=== PATIENT | male | born 1965 | race Caucasian/White ===

== ENCOUNTER 2018-09-27 02:52 | Emergency (ER) | payer OTHER ==
[~2018-09-27] VITALS: Ht 185.4 cm; Wt 74.8 kg
[2018-09-27 03:36] LABS: HEMOGLOBIN 12.7 gm/dL (14.0-18.0); MCH 31.1 pg (26.0-34.0); MCHC 33.4 g/dL (28.0-37.0); RBC 4.09 mil/uL (4.50-6.00); RDW 16.1 % (10.5-14.5); WBC 4.1 thou/uL (4.0-11.0)
[2018-09-27 03:44] LABS: CALCIUM 7.8 mg/dL (8.5-10.1); CREATININE 0.8 mg/dL (0.7-1.3)
[2018-09-27 03:46] LABS: POTASSIUM 2.7 mmol/L (3.5-5.1)
[2018-09-27 03:47] LABS: AMP/METHAMP Negative (Negative); BARBITURATES Negative (Negative); BENZODIAZEPINES Negative (Negative); COCAINE Negative (Negative); METHADONE Negative (Negative); OPIATES Negative (Negative); PCP Negative (Negative)
[2018-09-27 12:31] VITALS: BP 121/62
== END 2018-09-27 12:31 | disposition home or self-care (01) ==
LOC: ER 02:52
PROVIDERS: Emergency Medicine
DX: S22.41XA Multiple fractures of ribs, right side, initial encounter for closed fracture (principal); F10.121 Alcohol abuse with intoxication delirium; Y90.8 Blood alcohol level of 240 mg/100 ml or more; R45.851 Suicidal ideations; V04.10XA Pedestrian on foot injured in collision with heavy transport vehicle or bus in traffic accident, initial encounter; Y93.89 Activity, other specified; Y92.89 Other specified places as the place of occurrence of the external cause; Y99.8 Other external cause status

== ENCOUNTER 2019-01-20 10:06 | Emergency (ER) | payer OTHER ==
[~2019-01-20] VITALS: Ht 185.4 cm; Wt 66.2 kg
[2019-01-20] MEDS ORDERED: NEURONTIN100 MG PO (10:24)
[2019-01-20] MEDS ORDERED: SERTRALINE HCL100 MG PO (10:24)
[2019-01-20] MEDS ORDERED: TRAZODONE 150150 M1 PO (10:24)
[2019-01-20 10:50] LABS: URINE BILIRUBIN NEGATIVE (Negative); URINE BLOOD NEGATIVE (Negative); URINE CLARITY CLEAR; URINE COLOR YELLOW; URINE GLUCOSE-RANDOM* NEGATIVE (Negative); URINE KETONES NEGATIVE (Negative); URINE LEUKOCYTES-REFLEX NEGATIVE (Negative); URINE NITRITE-REFLEX NEGATIVE (Negative); URINE PROTEIN (DIPSTICK) TRACE (Negative)
[2019-01-20 10:54] LABS: AMP/METHAMP Negative (Negative); BARBITURATES Negative (Negative); BENZODIAZEPINES Negative (Negative); COCAINE Negative (Negative); METHADONE Negative (Negative); OPIATES Negative (Negative); PCP Negative (Negative)
[2019-01-20 11:14] LABS: HEMATOCRIT 32.5 % (42.0-52.0); HEMOGLOBIN 10.8 gm/dL (14.0-18.0); MCH 31.2 pg (26.0-34.0); MCHC 33.1 g/dL (28.0-37.0); MCV 94.3 fL (80.0-100.0); RBC 3.45 mil/uL (4.50-6.00); RDW 16.4 % (10.5-14.5); WBC 3.3 thou/uL (4.0-11.0)
[2019-01-20 11:32] LABS: ALBUMIN 3.1 g/dL (3.4-5.0); ANION GAP 10 mmol/L (7-16); BUN 7 mg/dL (7-18); CALCIUM 7.7 mg/dL (8.5-10.1); CHLORIDE 107 mmol/L (98-107); CO2 29 mmol/L (21-32); CREATININE 0.6 mg/dL (0.7-1.3); GLUCOSE 121 mg/dL (74-106); SALICYLATE < 2.8 mg/dL (2.8-20.0); SGOT 85 U/L (15-37); SGPT 37 U/L (30-65); SODIUM 146 mmol/L (136-145); TOTAL BILIRUBIN 0.4 mg/dL (<0.1-1.0); TOTAL PROTEIN 7.2 g/dL (6.4-8.2); TROPONIN-I <0.06 ng/mL (<0.06)
[2019-01-20 11:37] LABS: POTASSIUM 2.9 mmol/L (3.5-5.1)
[2019-01-20 11:38] LABS: ABSOLUTE NEUTROPHILS 1.8 thou/uL (1.4-8.2)
[2019-01-20 11:39] LABS: PLATELET COUNT 73 thou/uL (150-400); PLATELET ESTIMATE DECREASED
[2019-01-20 12:17] LABS: MAGNESIUM 1.2 mg/dL (1.8-2.4); PHOSPHORUS 3.1 mg/dL (2.5-4.9)
[2019-01-20 21:30] VITALS: BP 115/72
--- NOTE | 2019-01-21 08:35 | EKG ---
[address] [address] ELECTROCARDIOGRAM REPORT Name: TOÑOSUKUMAR HEATHER [id number] Admission: 01/20/19 Attend Phys: Discharge: 01/20/19 Date of : 67 Report #: [id number] THIS REPORT FOR: //name// [facility] ED Test Date: 2019-01-20 Test Time: 10:47:06 Pat Name: SUKUMAR LUNDBERG Department: Room: Gender: Corporate Administrator: DERRELL : 1965 Requested By: Gerardo Manuel Order Number: [id number] MD: Dominic Conway Measurements Intervals Mcintosh Rate: 76 P: 51 TN: 188 QRS: 34 QRSD: 86 T: 49 QT: 420 QTc: 473 Interpretive Statements Sinus rhythm Normal tracing No previous ECG available for comparison Electronically Signed On 01-21-2019 8:34:47 CDT by Dominic Conway [email or web address] <ELECTRONICALLY SIGNED> By: Dominic Conway MD, [facility] 01/21/19 0834 1047 1047 Dominic Conway MD, FACC /EPI
== END 2019-01-20 22:45 | disposition home or self-care (01) ==
LOC: ER 10:06
PROVIDERS: Emergency Medicine
DX: F10.129 Alcohol abuse with intoxication, unspecified (principal); E87.6 Hypokalemia; E83.42 Hypomagnesemia; R45.851 Suicidal ideations; F17.210 Nicotine dependence, cigarettes, uncomplicated; Z91.030 Bee allergy status

== ENCOUNTER 2019-04-15 21:16 | Emergency (ER) | payer OTHER ==
[~2019-04-15] VITALS: Ht 185.4 cm; Wt 72.6 kg
[~2019-04-15 21:16] MED LIST: NEURONTIN100 MG PO; SERTRALINE HCL100 MG PO; TRAZODONE 150150 M1 PO
[2019-04-15 22:27] LABS: URINE BILIRUBIN NEGATIVE (Negative); URINE BLOOD NEGATIVE (Negative); URINE CLARITY CLEAR; URINE COLOR YELLOW; URINE GLUCOSE-RANDOM* NEGATIVE (Negative); URINE KETONES NEGATIVE (Negative); URINE LEUKOCYTES-REFLEX NEGATIVE (Negative); URINE NITRITE-REFLEX NEGATIVE (Negative); URINE PROTEIN (DIPSTICK) NEGATIVE (Negative); URINE SPECIFIC GRAVITY 1.015 (1.005-1.035); URINE UROBILINOGEN 0.2 E.U./dl (0.2-1.0)
[2019-04-15 22:35] LABS: AMP/METHAMP Negative (Negative); BARBITURATES Negative (Negative); BENZODIAZEPINES Negative (Negative); COCAINE Negative (Negative); METHADONE Negative (Negative); OPIATES Negative (Negative); PCP Negative (Negative)
[2019-04-15 22:35] LABS: CALCIUM 8.7 mg/dL (8.5-10.1); CREATININE 0.9 mg/dL (0.7-1.3); POTASSIUM 3.2 mmol/L (3.5-5.1); SALICYLATE 3.3 mg/dL (2.8-20.0)
[2019-04-15 22:36] LABS: HEMATOCRIT 38.4 % (42.0-52.0); HEMOGLOBIN 12.3 gm/dL (14.0-18.0); MCH 27.1 pg (26.0-34.0); MCHC 31.9 g/dL (28.0-37.0); RBC 4.51 mil/uL (4.50-6.00); RDW 18.3 % (10.5-14.5); WBC 5.8 thou/uL (4.0-11.0)
[2019-04-15 23:07] LABS: ALBUMIN 4.2 g/dL (3.4-5.0); DIRECT BILIRUBIN 0.2 mg/dL (<0.1-0.2); TOTAL BILIRUBIN 0.4 mg/dL (<0.1-1.0); TOTAL PROTEIN 9.5 g/dL (6.4-8.2)
[2019-04-16 04:20] VITALS: BP 86/52
== END 2019-04-16 10:35 | disposition home or self-care (01) ==
LOC: ER 21:16
PROVIDERS: Emergency Medicine
DX: F32.9 Major depressive disorder, single episode, unspecified (principal); F10.129 Alcohol abuse with intoxication, unspecified; Z91.030 Bee allergy status

== ENCOUNTER 2019-05-03 20:55 | Emergency (ER) | payer OTHER ==
[~2019-05-03] VITALS: Ht 185.4 cm; Wt 72.6 kg
[2019-05-03 22:25] LABS: URINE BLOOD TRACE (Negative); URINE CLARITY CLEAR; URINE COLOR YELLOW; URINE GLUCOSE-RANDOM* NEGATIVE (Negative); URINE KETONES TRACE (Negative); URINE LEUKOCYTES-REFLEX NEGATIVE (Negative); URINE NITRITE-REFLEX NEGATIVE (Negative); URINE PROTEIN (DIPSTICK) 2+ (Negative); URINE SPECIFIC GRAVITY 1.025 (1.005-1.035)
[2019-05-03 22:25] LABS: ABSOLUTE NEUTROPHILS 1.5 thou/uL (1.4-8.2); BASOPHILS 2.7 % (0.0-2.0); EOSINOPHILS 1.4 % (0.0-3.0); HEMATOCRIT 36.9 % (42.0-52.0); HEMOGLOBIN 11.7 gm/dL (14.0-18.0); MCH 27.1 pg (26.0-34.0); MCHC 31.8 g/dL (28.0-37.0); MCV 85.4 fL (80.0-100.0); MONOCYTES 11.3 % (1.0-8.0); POLYS 39.6 % (36.0-66.0); RBC 4.32 mil/uL (4.50-6.00); RDW 18.9 % (10.5-14.5); WBC 3.7 thou/uL (4.0-11.0)
[2019-05-03 22:26] LABS: ICTOTEST (BILI CONFIRMATORY) Negative (Negative); URINE BILIRUBIN NEGATIVE (Negative)
[2019-05-03 22:32] LABS: CALCIUM 7.8 mg/dL (8.5-10.1); CREATININE 0.6 mg/dL (0.7-1.3); POTASSIUM 3.3 mmol/L (3.5-5.1)
[2019-05-03 22:33] LABS: BACTERIA-REFLEX 1-9 Few /HPF (None Seen); CASTS None Seen /LPF (None Seen); CRYSTALS None Seen /LPF (None Seen); SQUAMOUS None Seen /LPF (0-3); URINE RBC 0-2 Rare /HPF (0-2); URINE WBC-REFLEX 0-5 Rare /HPF (0-5)
[2019-05-03 22:35] LABS: AMP/METHAMP Negative (Negative); BARBITURATES Negative (Negative); BENZODIAZEPINES Negative (Negative); COCAINE Negative (Negative); METHADONE Negative (Negative); OPIATES Negative (Negative); PCP Negative (Negative)
[2019-05-03 22:37] LABS: ALBUMIN 3.7 g/dL (3.4-5.0); TOTAL BILIRUBIN 0.5 mg/dL (<0.1-1.0); TOTAL PROTEIN 8.5 g/dL (6.4-8.2)
[2019-05-03 22:47] LABS: PLATELET COUNT 76 thou/uL (150-400)
[2019-05-04 08:31] VITALS: BP 135/90
== END 2019-05-04 08:31 | disposition home or self-care (01) ==
LOC: ER 20:55
PROVIDERS: Nurse Practitioner Family
DX: R45.851 Suicidal ideations (principal); F10.129 Alcohol abuse with intoxication, unspecified; F32.9 Major depressive disorder, single episode, unspecified; I10 Essential (primary) hypertension; Z91.030 Bee allergy status; Y90.8 Blood alcohol level of 240 mg/100 ml or more

== ENCOUNTER 2020-04-25 03:18 | Emergency (ER) | payer OTHER ==
[~2020-04-25] VITALS: Ht 185.4 cm; Wt 65.4 kg
[2020-04-25 04:03] LABS: CALCIUM 8.1 mg/dL (8.5-10.1); CREATININE 0.7 mg/dL (0.7-1.3)
[2020-04-25 04:05] LABS: POTASSIUM 2.9 mmol/L (3.5-5.1)
[2020-04-25 04:09] LABS: ABSOLUTE NEUTROPHILS 3.3 thou/uL (1.4-8.2); ALBUMIN 1.8 g/dL (3.4-5.0); BASOPHILS 0.9 % (0.0-2.0); EOSINOPHILS 3.1 % (0.0-3.0); HEMATOCRIT 27.6 % (42.0-52.0); LYMPHOCYTES 21.9 % (24.0-44.0); MCH 28.9 pg (26.0-34.0); MCHC 32.7 g/dL (28.0-37.0); MCV 88.6 fL (80.0-100.0); PLATELET COUNT 143 thou/uL (150-400); POLYS 61.1 % (36.0-66.0); RBC 3.12 mil/uL (4.50-6.00); RDW 18.1 % (10.5-14.5); TOTAL BILIRUBIN 1.1 mg/dL (0.2-1.0); TOTAL PROTEIN 7.3 g/dL (6.4-8.2); WBC 5.4 thou/uL (4.0-11.0)
[2020-04-25 04:58] LABS: URINE BILIRUBIN NEGATIVE (Negative); URINE BLOOD NEGATIVE (Negative); URINE CLARITY CLEAR; URINE COLOR YELLOW; URINE GLUCOSE-RANDOM* NEGATIVE (Negative); URINE KETONES NEGATIVE (Negative); URINE LEUKOCYTES-REFLEX NEGATIVE (Negative); URINE NITRITE-REFLEX NEGATIVE (Negative); URINE PROTEIN (DIPSTICK) NEGATIVE (Negative); URINE SPECIFIC GRAVITY 1.015 (1.005-1.035)
[2020-04-25 05:56] LABS: BF NUCLEATED CELLS 638 /mm3; BF RBC 1314 /mm3
[2020-04-25 06:00] LABS: CLARITY CLEAR; COLOR YELLOW; TOTAL VOLUME 70 mL
[2020-04-25 06:15] LABS: SOURCE PERITONEAL
[2020-04-25 06:19] VITALS: BP 100/70
[2020-04-25 06:23] LABS: BF MACROPHAGE 30 %; BF NEUTROPHILS 11 %
== END 2020-04-25 06:51 | disposition still patient (30) ==
LOC: ER 03:18
PROVIDERS: Emergency Medicine
DX: R10.32 Left lower quadrant pain (principal); R10.33 Periumbilical pain; E11.9 Type 2 diabetes mellitus without complications; I10 Essential (primary) hypertension; Z91.030 Bee allergy status; Z79.899 Other long term (current) drug therapy

== ENCOUNTER 2020-05-03 10:08 | Emergency (ER) | payer OTHER ==
[~2020-05-03] VITALS: Ht 185.4 cm; Wt 63.5 kg
[2020-05-03] MEDS ORDERED: MOBIC7.5 MG PO (12:50)
[2020-05-03 13:25] VITALS: BP 100/72
[2020-05-04] MEDS ORDERED: DOXYCYCLINE 10100 MG PO (17:13)
== END 2020-05-03 13:25 ==
LOC: ER 10:08
DX: R10.84 Generalized abdominal pain (principal); I10 Essential (primary) hypertension; E11.9 Type 2 diabetes mellitus without complications; F17.210 Nicotine dependence, cigarettes, uncomplicated; Z79.899 Other long term (current) drug therapy; Z91.030 Bee allergy status

== ENCOUNTER 2020-05-04 14:20 | Emergency (ER) | payer OTHER ==
[~2020-05-04] VITALS: Ht 185.4 cm; Wt 67.5 kg
[~2020-05-04 14:20] MED LIST changes: +MOBIC7.5 MG PO
[2020-05-04 14:41] LABS: HEMOGLOBIN 8.9 gm/dL (14.0-18.0); MCH 28.8 pg (26.0-34.0); MCHC 32.1 g/dL (28.0-37.0); WBC 5.4 thou/uL (4.0-11.0)
[2020-05-04 14:42] LABS: ABSOLUTE NEUTROPHILS 3.6 thou/uL (1.4-8.2); BASOPHILS 1.1 % (0.0-2.0); EOSINOPHILS 1.5 % (0.0-3.0); HEMATOCRIT 27.5 % (42.0-52.0); LYMPHOCYTES 17.5 % (24.0-44.0); MCV 89.6 fL (80.0-100.0); MONOCYTES 13.7 % (1.0-8.0); PLATELET COUNT 161 thou/uL (150-400); POLYS 66.2 % (36.0-66.0); RBC 3.07 mil/uL (4.50-6.00); RDW 19.6 % (10.5-14.5)
[2020-05-04 14:53] LABS: CALCIUM 8.3 mg/dL (8.5-10.1); CREATININE 0.8 mg/dL (0.7-1.3); POTASSIUM 3.6 mmol/L (3.5-5.1)
[2020-05-04 14:57] LABS: URINE BILIRUBIN NEGATIVE (Negative); URINE BLOOD NEGATIVE (Negative); URINE CLARITY CLEAR; URINE COLOR YELLOW; URINE GLUCOSE-RANDOM* NEGATIVE (Negative); URINE KETONES NEGATIVE (Negative); URINE LEUKOCYTES-REFLEX NEGATIVE (Negative); URINE NITRITE-REFLEX NEGATIVE (Negative); URINE PROTEIN (DIPSTICK) NEGATIVE (Negative)
[2020-05-04 14:58] LABS: ALBUMIN 1.9 g/dL (3.4-5.0); TOTAL BILIRUBIN 1.1 mg/dL (0.2-1.0); TOTAL PROTEIN 7.4 g/dL (6.4-8.2)
[2020-05-04] MEDS ORDERED: DOXYCYCLINE 10100 MG PO (17:13)
[2020-05-04 17:26] VITALS: BP 113/79
== END 2020-05-04 18:08 | disposition home or self-care (01) ==
LOC: ER 14:20
PROVIDERS: Physician Assistant
DX: R10.31 Right lower quadrant pain (principal); J18.9 Pneumonia, unspecified organism; I10 Essential (primary) hypertension; E11.9 Type 2 diabetes mellitus without complications; F17.210 Nicotine dependence, cigarettes, uncomplicated; Z79.899 Other long term (current) drug therapy; Z91.030 Bee allergy status; Z91.048 Other nonmedicinal substance allergy status

== ENCOUNTER 2020-05-08 13:41 | Emergency (ER) | payer OTHER ==
[~2020-05-08] VITALS: Ht 185.4 cm; Wt 65.3 kg
[~2020-05-08 13:41] MED LIST changes: +DOXYCYCLINE 10100 MG PO
[2020-05-08] MEDS ORDERED: KEFLEX500 M1 PO (14:27)
[2020-05-08 15:07] VITALS: BP 115/79
== END 2020-05-08 15:07 | disposition home or self-care (01) ==
LOC: ER 13:41
DX: T85.611A Breakdown (mechanical) of intraperitoneal dialysis catheter, initial encounter (principal); T85.71XA Infection and inflammatory reaction due to peritoneal dialysis catheter, initial encounter; E11.9 Type 2 diabetes mellitus without complications; I10 Essential (primary) hypertension; F32.9 Major depressive disorder, single episode, unspecified; F17.210 Nicotine dependence, cigarettes, uncomplicated; Z79.2 Long term (current) use of antibiotics; Z79.899 Other long term (current) drug therapy; Z91.030 Bee allergy status; Y83.8 Other surgical procedures as the cause of abnormal reaction of the patient, or of later complication, without mention of misadventure at the time of the procedure; Y92.89 Other specified places as the place of occurrence of the external cause

== ENCOUNTER 2020-06-15 01:26 | Emergency (ER) | payer OTHER ==
[~2020-06-15] VITALS: Ht 185.4 cm; Wt 70.3 kg
[~2020-06-15 01:26] MED LIST changes: +KEFLEX500 M1 PO
[2020-06-15 02:07] LABS: URINE BILIRUBIN NEGATIVE (Negative); URINE BLOOD NEGATIVE (Negative); URINE CLARITY CLEAR; URINE COLOR YELLOW; URINE GLUCOSE-RANDOM* NEGATIVE (Negative); URINE KETONES NEGATIVE (Negative); URINE LEUKOCYTES-REFLEX NEGATIVE (Negative); URINE NITRITE-REFLEX NEGATIVE (Negative); URINE PROTEIN (DIPSTICK) NEGATIVE (Negative); URINE SPECIFIC GRAVITY <= 1.005 (1.005-1.035); URINE UROBILINOGEN 0.2 E.U./dl (0.2-1.0)
[2020-06-15 02:09] LABS: HEMATOCRIT 32.4 % (42.0-52.0); HEMOGLOBIN 10.2 gm/dL (14.0-18.0); MCH 28.3 pg (26.0-34.0); MCHC 31.5 g/dL (28.0-37.0); MCV 89.7 fL (80.0-100.0); RBC 3.61 mil/uL (4.50-6.00); WBC 4.6 thou/uL (4.0-11.0)
[2020-06-15 02:14] LABS: ANION GAP 12 mmol/L (7-16); BUN 5 mg/dL (7-18); CALCIUM 8.3 mg/dL (8.5-10.1); CHLORIDE 106 mmol/L (98-107); CO2 24 mmol/L (21-32); CREATININE 0.8 mg/dL (0.7-1.3); GLUCOSE 122 mg/dL (74-106); SODIUM 142 mmol/L (136-145)
[2020-06-15 02:15] LABS: AMP/METHAMP Negative (Negative); BARBITURATES Negative (Negative); BENZODIAZEPINES Negative (Negative); COCAINE Negative (Negative); METHADONE Negative (Negative); OPIATES Negative (Negative); PCP Negative (Negative)
[2020-06-15 02:19] LABS: SALICYLATE < 2.8 mg/dL (2.8-20.0)
[2020-06-15 13:21] VITALS: BP 124/81
--- NOTE | 2020-06-16 09:27 | HC ---
[facility] [place] [address] CONSULTATION Name: SUKUMAR LUNDBERG Room #: DEP M.R.#: [id number] Admission: 06/15/20 Attend Phys: Discharge: 06/15/20 Date of : 67 Report #: [id number] THIS REPORT FOR: cc: [facility] - Clinic physician unknown [facility] - Clinic physician unknown Orlando Grullon DO ~ DATE OF SERVICE: 06/15/2020 PSYCHIATRIC CONSULTATION PRIMARY ATTENDING PHYSICIAN: Anita Jerome MD. CONSULTING PSYCHIATRIST: Orlando Grullon DO REASON FOR CONSULTATION: Concern of suicidality presently and need for hospitalization. HISTORY OF PRESENT ILLNESS: This is a 55-year-old male sent from [facility] for evaluation of suicidality. He admits he had been drinking vodka. He stated in the ER, he was upset because his father called and asked the patient to remove his sister's phone numbers from his phone. He states that he gets along with one sister well but the other sister he has difficulty. He reported to the ER that she is "rich," and she does not understand where he is coming from. The patient was also requesting that his blood alcohol level be concealed and that he got into trouble when he showed up in the ER previously intoxicated. Stated that he was feeling depressed, having thoughts of hanging himself from an electric cord. Denies any ingestion other than vodka. He had thoughts of harming himself once before when he was walking across the bridge and envisioned himself jumping off. This was not recent. The patient reports he previously had a drainage source in his abdomen, this was removed. He does have some residual pain around the scar. He reported an 8/10 pain scale. 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 PSYCHIATRIC HISTORY: Depression, alcoholism. HOME MEDICATIONS: Keflex 500 mg p.o. t.i.d. for 10 days, doxycycline 100 mg p.o. b.i.d., meloxicam 7.5 mg p.o. daily p.r.n. for pain. Also, reportedly on sertraline 100 mg daily. ALLERGIES: BEE STINGS AND WASP STINGS. SOCIAL HISTORY: He smokes cigarettes and not interested in cessation. Alcohol [facility] [address] [place] [address] CONSULTATION Name: SUKUMAR LUNDBERG Room #: DEP ER Jesse#: [id number] Admission: 06/15/20 Attend Phys: Discharge: 06/15/20 Date of : 67 Report #: [id number] use is prevelant- not quantified, we did not get a clear frequency. Past history of recreational drug use. REVIEW OF SYSTEMS: Denies constitutional. Gastrointestinal: Abdominal pain. Psychiatric: To me, denies suicidal ideation, homicidal ideation, auditory, visual, or tactile hallucinations. LABORATORY DATA: Serum alcohol 263. Labs from ER, sodium 142, potassium 4.0, chloride 106, bicarbonate 24, anion gap 12, BUN 5, creatinine 0.8, estimated GFR 101, glucose 122, calcium 8.3, white count 4.6, H and H 10.2 and 32.4, platelet count 93,000. UDS negative. Salicylate less than 3.8. Acetaminophen less than 2. Urinalysis was grossly negative. PHYSICAL EXAMINATION: VITAL SIGNS: Weight 70.31 kilos. In the ER today, temperature 36.7, pulse ranging 84-109, respirations 18, BP 124/81, O2 sat 98%. MUSCULOSKELETAL: Lying on the Emergency Room gurney, disheveled. MENTAL STATUS EXAMINATION: This is a well-developed male, appearing stated age. Attention fair. Concentration fair. Speech is normal rate, volume and tone. Thought process: Linear and goal directed. Thought content focused on returning to [facility], interested in maintaining sobriety, though had recent relapse. Denied SI or HI. Denied auditory, visual, or tactile hallucinations. Denied hopelessness, helplessness. Memory not formally tested. Insight limited. Judgment limited. Fund of knowledge, no greater than average. FORMULATION: A 55-year-old male brought to ED last night for concern of suicidality in setting of alcohol intoxication. RECOMMENDATIONS: At this time, the patient has sobered up and mini mental status exam done when he was intoxicated would be considered invalid from a psychiatric standpoint. The patient is cirrhotic in a residential care facility. He is and is not currently in a relationship. Unfortunately, there are multiple chronic risk factors for him completing suicide; however, none of those will be amenable by other adult or certainly Geriatric Psychiatry hospitalization. The patient needs ongoing medical support and counseling for his alcoholism. This was related inpatient, the essential nature of sobriety, the increased risk of suicidal ideation and attempts when he [facility] [address] [place] [address] CONSULTATION Name: SUKUMAR LUNDBERG Room #: DEP FerdinandDarby#: [id number] Admission: 06/15/20 Attend Phys: Discharge: 06/15/20 Date of : 67 Report #: [id number] drinks. I relayed to Dr. Jerome my recommendation that he be discharged back to his [facility]. <ELECTRONICALLY SIGNED> By: Orlando Grullon DO 06/16/20 0927 1619 01 Orlando Grullon DO /nt
== END 2020-06-15 13:21 ==
LOC: ER 01:26
PROVIDERS: Student in an Organized Health Care Education/Training Program
DX: F43.20 Adjustment disorder, unspecified (principal); R45.851 Suicidal ideations; F10.129 Alcohol abuse with intoxication, unspecified; I10 Essential (primary) hypertension; E11.9 Type 2 diabetes mellitus without complications; F17.210 Nicotine dependence, cigarettes, uncomplicated; Z79.899 Other long term (current) drug therapy; Z91.030 Bee allergy status; Z20.822 Contact with and (suspected) exposure to COVID-19; Y90.8 Blood alcohol level of 240 mg/100 ml or more

== ENCOUNTER 2020-06-25 05:09 | Emergency (ER) | payer OTHER ==
[~2020-06-25] VITALS: Ht 170.2 cm; Wt 61.2 kg
[2020-06-25 05:48] LABS: URINE BILIRUBIN NEGATIVE (Negative); URINE BLOOD NEGATIVE (Negative); URINE CLARITY CLEAR; URINE COLOR YELLOW; URINE GLUCOSE-RANDOM* NEGATIVE (Negative); URINE KETONES NEGATIVE (Negative); URINE LEUKOCYTES-REFLEX NEGATIVE (Negative); URINE NITRITE-REFLEX NEGATIVE (Negative); URINE PROTEIN (DIPSTICK) NEGATIVE (Negative); URINE UROBILINOGEN 0.2 E.U./dl (0.2-1.0)
[2020-06-25] MEDS ORDERED: MAGNESIUM OXID400 M1 PO ×2 (05:53)
[2020-06-25] MEDS ORDERED: PROTONIX40 M2 PO ×2 (05:54)
[2020-06-25] MEDS ORDERED: MIDODRINE HCL 55 M1 PO ×2 (05:54)
[2020-06-25] MEDS ORDERED: NEURONTIN 300M300 M2 PO ×2 (05:54)
[2020-06-25] MEDS ORDERED: PRENATAL VITAM1 EAC4 PO ×2 (05:54)
[2020-06-25 05:55] LABS: AMP/METHAMP Negative (Negative); BARBITURATES Negative (Negative); BENZODIAZEPINES Negative (Negative); COCAINE Negative (Negative); METHADONE Negative (Negative); OPIATES Negative (Negative); PCP Negative (Negative)
[2020-06-25] MEDS ORDERED: CONSTULOSE10 GM/15 M PO ×2 (05:56)
[2020-06-25] MEDS ORDERED: SPIRONOLACTONE50 MG PO ×2 (05:56)
[2020-06-25] MEDS ORDERED: OXYCODONE HCL 55 MG PO ×2 (05:56)
[2020-06-25] MEDS ORDERED: MELATONIN3 MG PO ×2 (05:57)
[2020-06-25] MEDS ORDERED: MELOXICAM7.5 MG PO ×2 (05:58)
[2020-06-25 06:07] LABS: ABSOLUTE NEUTROPHILS 2.7 thou/uL (1.4-8.2); BASOPHILS 1.2 % (0.0-2.0); HEMATOCRIT 33.3 % (42.0-52.0); HEMOGLOBIN 10.9 gm/dL (14.0-18.0); LYMPHOCYTES 28.3 % (24.0-44.0); MCH 29.2 pg (26.0-34.0); MCHC 32.6 g/dL (28.0-37.0); MCV 89.6 fL (80.0-100.0); MONOCYTES 14.2 % (1.0-8.0); PLATELET COUNT 111 thou/uL (150-400); POLYS 55.3 % (36.0-66.0); RBC 3.72 mil/uL (4.50-6.00); RDW 20.3 % (10.5-14.5); WBC 4.9 thou/uL (4.0-11.0)
[2020-06-25 06:08] LABS: ANION GAP 13 mmol/L (7-16); BUN 7 mg/dL (7-18); CALCIUM 8.4 mg/dL (8.5-10.1); CHLORIDE 107 mmol/L (98-107); CO2 23 mmol/L (21-32); CREATININE 0.7 mg/dL (0.7-1.3); GLUCOSE 136 mg/dL (74-106); POTASSIUM 3.7 mmol/L (3.5-5.1); SODIUM 143 mmol/L (136-145)
[2020-06-25 06:15] LABS: ALBUMIN 2.8 g/dL (3.4-5.0); DIRECT BILIRUBIN 0.9 mg/dL (<0.1-0.2); MAGNESIUM 1.5 mg/dL (1.8-2.4); PHOSPHORUS 4.2 mg/dL (2.6-4.7); SGOT 96 U/L (15-37); SGPT 33 U/L (16-63); TOTAL BILIRUBIN 1.3 mg/dL (0.2-1.0)
[2020-06-25 06:17] LABS: SALICYLATE < 2.8 mg/dL (2.8-20.0)
[2020-06-25 11:10] VITALS: BP 107/76
== END 2020-06-25 11:10 | disposition designated cancer center or children's hospital (05) ==
LOC: ER 05:09
PROVIDERS: Emergency Medicine
DX: R45.851 Suicidal ideations (principal); I10 Essential (primary) hypertension; E11.9 Type 2 diabetes mellitus without complications; F17.210 Nicotine dependence, cigarettes, uncomplicated; Z79.899 Other long term (current) drug therapy; Z91.030 Bee allergy status; Z91.048 Other nonmedicinal substance allergy status; Z20.822 Contact with and (suspected) exposure to COVID-19

== ENCOUNTER 2020-06-25 11:00 | Inpatient (IN) | payer OTHER ==
[~2020-06-25] VITALS: Ht 185.4 cm; Wt 71.4 kg
[~2020-06-25 11:00] MED LIST changes: +CONSTULOSE10 GM/15 M PO; +MAGNESIUM OXID400 M1 PO; +MELATONIN3 MG PO; +MELOXICAM7.5 MG PO; +MIDODRINE HCL 55 M1 PO; +NEURONTIN 300M300 M2 PO; +OXYCODONE HCL 55 MG PO; +PRENATAL VITAM1 EAC4 PO; +PROTONIX40 M2 PO; +SPIRONOLACTONE50 MG PO
[2020-06-25 12:51] VITALS: BP 105/68
--- NOTE | 2020-06-25 13:56 | NUR ---
PT. ARRIVED ON THE UNIT ABOUT 11:00 A.M. FROM [facility]. HE LIVES AT [facility]. HE ELOPED AND WENT TO DRINK ETOH. HIS ALCOHOL LEVEL WAS 285. HE STATES HE WAS DEPRESSED AND JUST NEEDED A DRINK. HE STATES HE HAS A HISTORY OF ETOH ABUSE AND HAS CIRRHOSIS OF THE LIVER FROM THIS HISTORY OF BEHAVIORS. HE ALSO HAS DEPRESSION, TYPE II DM. HE LAYED ON THE BED COVERING HIS FACE AND HEAD DURING THE INTERVIEW. THIS RN KEPT ASKING HIM TO UNCOVER HIS HEAD. HE DID SO AT THAT TIME. WHEN LUNCH CAME, HE STATED HE DID NOT WANT TO COME OUT OF HIS ROOM TO EAT. THIS RN INFORMED HIM THERE IS NO EATING IN HIS ROOM. HE THEN CAME OUT AND ATE LUNCH. DR. LU AND ANNABELLA SPOKE WITH THE PATIENT. HE IS STEADY ON HIS FEET WHILE AMBULATING. HE STATES HE IS NOT HAPPY ABOUT BEING HERE. HE LIKES TO PAINT. HE HAS PAINT ALL OVER HIS HANDS AND ARMS WHERE HE STATES HE WENT TO [place] [employer] (HE GRADUATED FROM THERE IN 1991) AND PAINTED. HE STATES HIS MOTHER HAD MAJOR DEPRESSIVE DISORDER ALSO, BUT DENIES ANY OTHERS IN HIS FAMILY HAD THIS. HE STATES HE HAS NEVER BEEN AND HAS NO CHILDREN. HE LIVES ON DISABILITY BUT DOES NOT KNOW FOR WHAT. IN THE PAST HE BROKE HIS FEMUR AND BROKE HIS RT. ANKLE 8 TIMES. HE STATES THERE IS AN 8" PLATE IN THE RIGHT ANKLE. HE STATES HE HAS HEPATITES C.
[2020-06-25 19:17] VITALS: BP 119/80
--- NOTE | 2020-06-26 01:57 | NUR ---
patient aox4 makes needs known. patient calm and cooperative with care and meds. patient had emesis x1 ciwa score was 10, ativan given per order. at around 2246. patient encouraged fluids.patient in bed asleep at this time breathing regular and unlaboured.
[2020-06-26 09:09] VITALS: BP 134/99
--- NOTE | 2020-06-26 09:31 | H ---
[facility] [address] [place] [address] HISTORY AND PHYSICAL Name: SUKUMAR LUNDBERG Room #: 519B-B ADM IN M.R.#: [id number] Admission: 06/25/20 Attend Phys: Orlando Grullon DO Discharge: Date of : 67 Report #: [id number] THIS REPORT FOR: cc: [facility] - Clinic physician unknown [facility] - Clinic physician unknown Orlando Grullon DO ~ DATE OF SERVICE: 06/25/2020 INPATIENT PSYCHIATRIC EVALUATION ATTENDING PHYSICIAN: Orlando Grullon DO. BRACELET FORM COVERER: Antonette Matos MD. REASON FOR PSYCHIATRIC ADMISSION: Suicidal ideations. HISTORY OF PRESENT ILLNESS: This is a 55-year-old male well known to me from the Emergency Room consultation on 06/15/2020. He was brought today by EMS from the [facility]. The patient was intoxicated on alcohol. He is admitted to the ER staff, he was continuously thinking about ending his life. He states he was upset because his father called and asked the patient to remove his sister's phone numbers from his phone. Interestingly, this was the similar story from his 06/15/2020 presentation. He states that he gets along with one sister well, but the other sister, he was having difficulty with. 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 He requested the ER staff to not let his assisted living facility know what his alcohol level is. The patient states he was feeling depressed today and had thoughts of hanging himself with an electrical cord. He believes his sisters would be sad if he were gone and it would be easier for everyone in his life if he were . He denies any ingestion other than vodka. He had thoughts of harming himself once before when he was walking across a bridge and envisioned himself jumping off. 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 No access to firearms. The patient reports he previously had a drain in his abdomen that has been removed. He does admit to being cirrhotic, followed at [facility] for cirrhosis of the liver. LABORATORY DATA: Laboratories today, blood alcohol level was 285. Sodium 143, potassium 3.7, chloride 107, bicarbonate 23, anion gap 13, BUN 7, creatinine 0.7, estimated GFR 118. Glucose 136, calcium 8.4, phosphorus 4.2, magnesium 1.5, total bilirubin 1.3, direct bilirubin 0.9, AST 96, ALT 33, alkaline phosphatase 219, total protein 9.0, albumin 2.8. TSH 0.675. Free T4 of 0.8. White count 4.9, H and H 10.8 and 33.3. Platelet count, the patient is thrombocytopenic at 111. COVID-19 PCR was negative. Drug screen was negative. Salicylate is negative. Acetaminophen negative. Urinalysis was normal. We did [facility] [address] [place] [address] HISTORY AND PHYSICAL Name: SUKUMAR LUNDBERG Room #: 519B-B ADM IN M.R.#: [id number] Admission: 06/25/20 Attend Phys: Orlando Grullon, DO Discharge: Date of : 67 Report #: [id number] perform a stat ammonia level on the patient given his cirrhosis and alcohol intoxication that came back at 58. My hunch is that is probably where the patient lives given the chronicity of his medical issues. MEDICAL HISTORY: Prediabetes, alcohol use daily, drinks vodka, quantity unspecified. Interestingly, his EMS and the Emergency Room reports back to 09/2018. Past psychiatric hx: 15 years ago hospitalized work hx: artist, does work at [employer] Substance use hx: alcohol, drinks every day denies smoking, denies recreational drug use ALLERGIES: BEE STINGS, WASP STINGS. PHYSICAL EXAMINATION: VITAL SIGNS: Temperature 36.2, pulse 75, respirations 18, BP 105/60, O2 sat 97%. MUSCULOSKELETAL: Normal gait and station. The patient is disheveled. MENTAL STATUS EXAMINATION: This is a well-developed, ill-appearing male, appearing older than stated age. Attention fair. Concentration fair. Speech is normal, rate, rhythm, and tone. Thought process is linear and goal directed. Thought content, focused on the present recent SI. Denied current intent to harm self or others. Denied auditory, visual, or tactile hallucinations. Memory not formally tested given his alcohol intoxication. Insight impaired, judgment impaired. Fund of knowledge well below average. I will need to get from him about a better substance use history, family history, abuse history, history, and his disability status. I will add those on later. DIAGNOSES: At this time, alcohol intoxication, resolved; substance use disorder for alcohol, severe. Unspecified depression, liver cirrhosis, impaired fasting glucose. PLAN: Evaluate, stabilize, obtain collateral. ESTIMATED LENGTH OF STAY: 5-10 days. Plan: Regarding his medications, put on CIWA protocol, thiamine 100 mg p.o. t.i.d., vitamin p.o. daily. He was given a one-time magnesium oxide today, famotidine 20 mg p.o. b.i.d. for GERD, lactulose 20 mg p.o. daily, hospice [facility] [address] [place] [address] HISTORY AND PHYSICAL Name: SUKUMAR LUNDBERG Room #: 519B-B ADM IN M.R.#: [id number] Admission: 06/25/20 Attend Phys: Orlando Grullon DO Discharge: Date of : 67 Report #: [id number] ordered for hyperammonemia. We will see how he does in the next 24 hours. Expect to keep him over the weekend. Greater than 60 minutes were spent on this case, greater than 50% of time spent on coordination of care and review of records. strengths: young age, insured weaknesses: chronic alcoholism, poor social support <ELECTRONICALLY SIGNED> By: Orlando Grullon DO 06/26/20 0931 1636 1717 Orlando Grullon DO /nt
[2020-06-26 10:09] VITALS: BP 134/99
--- NOTE | 2020-06-26 13:59 | NUR ---
1355 RESUMMED CARE FROM THE OVERNIGHT SHIFT THIS AM, PATIENT ALERT ORIENTED TIMES 4. PATIENT DENIES SI/HI/AH/VH AT PRESENT PATIENT ATE BREAKFAST TOOK MEDICATION WITHOUT. PATIENTS ABDOMEN SOFT BOWL SOUNDS PRESENT PATIENTS LUNGS CLEAR. PATIENT STATED TO ME THAT HE HAS BEEN USING ALCOHOL SINCE AGE 19. PATIENT STATES HE GOES TO AA MEETINGS PATIENT DOES NOT HAVE ANY TREMORS OR VOMITING. PATIENT HAS BEEN PARTICPATING IN GROUPS WILL CONTINUE TO MONITOR PATIENT FOR SAFETY AND BEHAVIORS.
[2020-06-26 19:00] VITALS: BP 118/81
--- NOTE | 2020-06-27 01:43 | NUR ---
PT ALERT AND ORIENTED. WAS SITTING IN DAY AREA WATCHING MOVIE AND WAS UPSET WHEN TV WAS TURNED OFF@10PM. PT REQUESTED ATIVAN TO HELP HIM RELAX AND SLEEP. PT WOKE UP AT AROUND 2330 HRS C/O ITCHING AND UNABLE TO SLEEP. ONE TIME VISTARIL GIVEN AT 2335 AND THAT SEEMS TO HAVE HELPED. PT DENIES BACK PAIN. C/O SOME LUQ PAIN-PT IS ON ROOM AIR, NO RESP DISTRESS. REMAINS AMBULATORY. DENIES SI/HI.PT CALM AND COOPERATIVE. LAST CWAL AT 0100 WAS 1.
[2020-06-27 08:55] VITALS: BP 128/94
[2020-06-27 09:20] VITALS: BP 128/94
--- NOTE | 2020-06-27 10:48 | NUR ---
1045 RESUMMED CARE FROM OVERNIGHT SHIFT THIS AM, PATIENT IN ROOM QUIETLY SLEEPING. I GOT PATIENT UP FOR BREAKFAST AND HE TOOK MEDICATION WITHOUT INCIDENCE. PATIENT ALERT ORIENTED TIMES 4; PATIENTS AFFECT IS FLAT AND HE DOES NOT TALK MUCH TO OTHER PATIENT. PATIENT STAYS TO SELF PATIENT DENIES SI/HI/AH/VH AT PRESENT. PATIENT'S HAS NOT HAD ANY TREMORS, VOMITING OR ANXIETY THIS SHIFT. DR DAVIES CAME AND SAW PATIENT WHO COMPLAINED ABOUT SOME MILD STREAMING WHEN HE URINATES. FLOMAX WAS ORDERED AND A URINE SAMPLE NEEDED. PATIENTS ABDOMEN SOFT SOME DISCOMFORT ON LEFT SIDE BOWEL SOUNDS PRESENT. PATIENTS LUNGS CLEAR PATIENT CALM COOPERATIVE DOES ATTENDS CERTAIN GROUPS. WILL CONTINUE TO MONITOR PATIENT FOR SAFETY AND BEHAVIORS.
[2020-06-27 14:46] LABS: URINE BILIRUBIN 1+ (Negative); URINE BLOOD NEGATIVE (Negative); URINE CLARITY CLEAR; URINE COLOR YELLOW; URINE GLUCOSE-RANDOM* NEGATIVE (Negative); URINE KETONES TRACE (Negative); URINE LEUKOCYTES NEGATIVE (Negative); URINE NITRITE NEGATIVE (Negative); URINE PROTEIN (DIPSTICK) NEGATIVE (Negative); URINE SPECIFIC GRAVITY 1.025 (1.005-1.035)
[2020-06-27 14:49] LABS: ICTOTEST (BILI CONFIRMATORY) Positive (Negative)
[2020-06-27 19:44] VITALS: BP 126/87
--- NOTE | 2020-06-27 21:11 | NUR ---
PT ASLEEP IN BED UPON ARRIVAL TO SHIFT. PT EASILY AROUSED, COMPLIANT WIHT MEDICINE, HS SNACK AND CHANGING OF GOWN. STEADY GAIT, GOOD EYE CONTACT, BLUNTED AFFECT.
[2020-06-28 07:46] LABS: CALCIUM 8.6 mg/dL (8.5-10.1); CREATININE 0.8 mg/dL (0.7-1.3); POTASSIUM 3.7 mmol/L (3.5-5.1)
[2020-06-28 09:48] VITALS: BP 131/89
--- NOTE | 2020-06-28 11:27 | NUR ---
Assess due to new admit to [facility] with SI. Hx alcoholism, cirrhosis, ascites. Ammonia level 58-on lactulose. Eating 100% most meals. Wts fairly stable. Has vitamin and thiamine ordered. Low nutrition risk
--- NOTE | 2020-06-28 14:58 | NUR ---
Assumed pt care at 0700. pt was alert and oriented x4. assessments completed,vss. pt was calm and co-operative. took meds whole with thin liquid, no difficulty noted. pt participated in groups. denies si/hi. AT this time there is no c/o pain. no sign of acute distress noted upon assessments. Ambulates with a steady gait. will continue to monitor pt.
--- NOTE | 2020-06-28 15:52 | NUR ---
SW met with Pt to discuss discharge. SW worked with Pt to complete a safety plan. SW filed a copy in Pt's record. Pt is in agreement with the discharge and understands he is in need for substance abuse treatment and community mental health. Pt did report going to AA meetings every Sunday. Pt does want to continue attending. Pt will d/c to [facility] 06/29/2020 @5495 via [employer]
--- NOTE | 2020-06-28 16:08 | NUR ---
ANIBAL recieved a VM from Viviane Early, Pt's sister. ANIBAL called Viviane back at [phone]. Viviane stated that she wanted to have a meeting concerning the Pt. ANIBAL informed the Pt would be discharged back to [facility] on 06/29/2020. Also the psychiatrist was out of the office until later in the afternoon. ANIBAL informed a meeting most likely could not occur prior to the Pt's discharge. Viviane expressed that [facility] put in notice on the Pt. ANIBAL was aware and explained the facility should assist the Pt and the family in locating a new placement. Viviane expressed concerns about the Pt's SI. ANIBAL gave update on the Pt's treatment while on [facility] and the Pt currently denies SI/HI. Also Pt is in need of substance abuse treatment which [facility] does not offer at this time. ANIBAL informed Pt will be referred to [facility] upon discharge. Viviane had no other questions.
--- NOTE | 2020-06-28 16:21 | NUR ---
ANIBAL called [facility] concerning discharge. ANIBAL spoke with Chetan. Charo stated they have given a 30 day notice on the Pt and that she thought SW would find Pt a new placement. ANIBAL educated on SW role on [facility] and that finding placement for a Pt was the role of the facility. SW encouraged [facility]tan to work with the Pt and the family on locating a new placment if [facility] felt they could not meet the Pt's needs. Chetna expressed understanding of the information. Pt scheduled for d/c 06/29/2020 @ 0930. Pt will has been referred to [facility] for follow up psychiatry, out pt substance abuse treatment, and case management.
--- NOTE | 2020-06-28 17:31 | NUR ---
ANIBAL talked to Cecy at [facility], , concerning the suicide prevention program. 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 Cecy emailed a referral to ANIBAL. ANIBAL completed the referral and emailed to [email or web address]
[2020-06-28 19:26] VITALS: BP 118/77
--- NOTE | 2020-06-29 00:11 | NUR ---
PT ALERT AND ORIENTED X 4. AMB AROUND UNIT WITHOUT DIFFICULTY. PT C/O PAIN IN HIS BACK. TRAMADOL GIVEN ORDERED WITH ADEQUATE PAIN RELIEF VERBALIZED. DENIES SI/HI. PT TAKES MEDS WHOLE WITHOUT DIFFICULTY. WILL CONTINUE TO MONITOR.
[2020-06-29] MEDS ORDERED: FLOMAX0.4 MG PO ×2 (09:08)
[2020-06-29 09:14] VITALS: BP 107/80
[2020-06-29 09:16] VITALS: BP 107/80
--- NOTE | 2020-06-29 10:10 | NUR ---
Assumed pt care at 0700. pt was alert and oriented x4. Assessments completed vss. pt took meds whole, no difficulty noted. pt was calm and co-operative with care. Denies si/hi. c/o pain, tramadol administered for pain control. ambulates with a steady gait. pt was excited to be going home. At 0935 pt was D/C to [facility]. pt was transported by [employer]. marine underwriter accompanied pt to the security and ER, in search of pt jacket. pt exited the hospital through the front entrance exit. At 1008 report was called to Guerline at [facility].
--- NOTE | 2020-07-01 09:08 | NUR ---
Patient called unit reporting that his black jacket is missing. This was discussed with patient also on 06/29/20. Patient was discharged with all personal belongings included on his inventory sheet. Patient did not arrive to hospital with a black jacket worn. Unit has spoken with ED and patient didn't arrive there with a black jacket either. Patient had called and gabriela in EMS prior to arrival to hospital. Spoke with patient over the phone regarding there not being a black jacket at [facility] that belongs to him. Patient appreciative and said he would check the other 2 placements he had been at prior to admission.
--- NOTE | 2020-07-01 21:13 | D ---
[facility] [place] [address] DISCHARGE SUMMARY Name: SUKUMAR LUNDBERG Room #: 519B-B DIS IN M.R.#: [id number] Admission: 06/25/20 Attend Phys: Orlando Grullon DO Discharge: 06/29/20 Date of : 67 Report #: [id number] THIS REPORT FOR: cc: [facility] - Clinic physician unknown [facility] - Clinic physician unknown Orlando Grullon DO ~ DATE OF SERVICE: 06/29/2020 INPATIENT PSYCHIATRIC DISCHARGE SUMMARY ATTENDING PHYSICIAN: Orlando Grullon DO. CLIENT EXECUTIVE AT THE TIME OF DISCHARGE: Antonette Matos MD DISCHARGE DIAGNOSES: Alcohol use disorder, severe; alcohol intoxication, resolved; alcohol withdrawal, resolved. ADDITIONAL MORBIDITIES: Include cirrhosis of the liver; hypomagnesemia, replaced; possible BPH, empirically started on Flomax with improvement; history of orthostatic hypotension; however, not identify this admission; moderate protein malnutrition; history of hepatitis C. The patient will be discharging back to the residential care facility at [facility]. Per receiving facility, his PCP there is Dr. Yovani Blair. The patient was given [place] [facility], strongly encouraged to follow up on that. DISCHARGE MEDICATIONS: Flomax 0.4 mg p.o. daily, pantoprazole 40 mg oral twice daily, lactulose 10 g oral twice daily for hyperammonemia, multivitamin may be considered as well. LABORATORY DATA: Significant laboratories this admission were fairly limited, H and H 10.9 and 33.3 due to liver disease, likely white count 4.9, platelet count 111. Chemistry this admission from 06/28/2020, sodium 139, potassium 3.7, chloride 105, bicarbonate 24, anion gap 10, BUN 10, creatinine 0.8, estimated GFR 101, glucose 121, calcium 8.6, ionized calcium was from previous date, phosphorus 4.2, magnesium 1.5, total bilirubin 1.3, direct bilirubin 0.9, AST 96, ALT 33, alkaline phosphatase 219, ammonia level was 58, but I believe this is chronically elevated. Total protein 9.0, albumin low at 2.8. TSH normal at 0.675, free T4 normal at 0.8. Urinalysis showed trace protein, 1+ bilirubin, Urobilinogen 2.80, some bacteria. A culture was triggered. COVID-19 PCR serology was negative on 06/25/2020. REASON FOR ADMISSION: Back on 06/25/2020 is as follows: A 55-year-old male who resides at [facility], brought in for alcohol intoxication and suicidal ideation. I believe, his BAL was 265 or so. [facility] [address] [place] [address] DISCHARGE SUMMARY Name: TOÑOSUKUMAR LEE Room #: 519B-B DIS IN M.R.#: [id number] Admission: 06/25/20 Attend Phys: Orlando Grullon DO Discharge: 06/29/20 Date of : 67 Report #: [id number] HOSPITAL COURSE: The patient was admitted to [facility]. Initially, he was placed on CIWA protocol. He was treated a couple of times, but largely uneventful withdrawal, that was discontinued. I heard from Dr. Blair this admission, it sounds like the patient has been not officially given notice to vacate, but from the sounds of things that is likely upon his return the patient was not interested in medications to maintain sobriety. He has poor motivation for treatment and reported a lifetime of alcoholism. On the day of discharge, he was not suicidal or homicidal. PHYSICAL EXAMINATION: VITAL SIGNS: On the day of discharge are as follows: Temperature 36.3, pulse 99, respirations 18, BP 107/80, O2 sat 98%. MUSCULOSKELETAL: Unkempt male, appearing stated age, wearing hospital gown. MENTAL STATUS EXAMINATION: This is a well-developed, somewhat ill-appearing male. Attention, concentration fair. Speech soft, normal rate. Thought process: Linear and goal directed. Thought content focused on where his ski jacket is and concerned about potential for having to vacate his RCF soon. mood/affect constricted Denied SI or HI. Denied auditory, visual, or tactile hallucinations. Denied hopelessness, helplessness. Memory not formally tested. Insight limited. Judgment limited. Fund of knowledge, probably above average. PROGNOSIS: Overall prognosis for this patient is poor given a 35-year history according to him of alcoholism and a failure to engage in numerous other opportunities for chemical dependency treatment and maintenance of sobriety. <ELECTRONICALLY SIGNED> By: Orlando Grullon DO 07/01/202112 24 55 Orlando Grullon DO /nt
== END 2020-06-29 09:30 | DRG 881 ==
LOC: SBH 11:00
PROVIDERS: Hospitalist; ADMIT Psychiatry & Neurology Psychiatry; ATTEND Psychiatry & Neurology Psychiatry
DX: F32.9 Major depressive disorder, single episode, unspecified (principal); F10.139 Alcohol abuse with withdrawal, unspecified; R45.851 Suicidal ideations; E44.0 Moderate protein-calorie malnutrition; E83.42 Hypomagnesemia; K74.60 Unspecified cirrhosis of liver; K21.9 Gastro-esophageal reflux disease without esophagitis; N40.0 Benign prostatic hyperplasia without lower urinary tract symptoms; I95.1 Orthostatic hypotension; F10.129 Alcohol abuse with intoxication, unspecified; Y90.9 Presence of alcohol in blood, level not specified; Z68.20 Body mass index [BMI] 20.0-20.9, adult; Z91.030 Bee allergy status
CPT/HCPCS: 10880

== ENCOUNTER 2020-08-30 18:32 | Emergency (ER) | payer OTHER ==
[~2020-08-30] VITALS: Ht 185.4 cm; Wt 72.6 kg
--- NOTE | ~2020-08-30 | EMS ---
[address] [address] EMS Patient Care Report Name: SUKUMAR LUNDBERG Room #: DEP BERTHA Molina#: [id number] Admission: 08/30/20 Attend Phys: Discharge: 08/31/20 Date of : 67 Report #: [id number] THIS REPORT FOR: //name// Report Transmitted: 08/31/2020 06:20 EMS Care Summary [place], [place]/[facility] Incident [id number] @ 08/30/2020 18:10 Incident Location [address] [place] [address] FLR Patient SUKUMAR LUNDBERG Male, 55 Years 1965 Patient Address [address] [place], [place] [id number] Patient History Other,Behavioral/Psychiatric Disorder,Hypertension (HTN),Smoking,Gastro-Esophageal Reflux Disease (GERD),Cirrhosis of Liver,Hepatitis C (Without Hepatic Coma),Depression,Pancreatitis,Alcohol Abuse,Gallstone,Hypokalemia,Hypomagnesemia, Patient Allergies Bee sting allergy,Pollen allergy, Patient Medications Ondansetron, Melatonin, Magnesium Oxide, Midodrine, Pantoprazole, Gabapentin, Potassium, Spironolactone, Sertraline, Trazodone, Lactulose, Oxycodone, Chief Complaint leg pain Disposition Transported No Lights/[place] Dispatch Reason Sick Person Transported To [address] [address] EMS Patient Care Report Name: SUKUMAR LUNDBERG Room #: DEP [facility]#: [id number] Admission: 08/30/20 Attend Phys: Discharge: 08/31/20 Date of : 67 Report #: [id number] Medic 41 dispatched to a residence on a sick. Patient states that his leg cramped up for a few seconds yesterday but went away. Patient states the pain got much worse today and started happening in other places in his leg. Upon EMS arrival patient was found with pumper crew walking out to the ambulance. Patient was assisted into the ambulance and sat on the stretcher where seatbelts were applied and vitals were taken. Patient was transported to [facility] where care was transferred to [facility]. EMS back in service with no further incidents. Initial Vitals @18:23P: 92,R: 16,BP: 130/80,Pain: 8/10,GCS: 15,CO: 1,SpO2: 97,Revised Trauma: 12, Assessments @18:24MENTAL:Person Oriented,Time Oriented,Place Oriented,Event Oriented,SKIN:HEENT:LUNG SOUNDS:ABDOMEN:PELVIS//GI:EXTREMITIES:PULSE:NEURO: Impression Extremity Pain Procedures @18:24ALS AssessmentResponse: UnchangedSucceeded@18:24BLS AssessmentResponse: Unchanged Timeline 18:07,Call Received 18:07,Dispatch Notified 18:10,Dispatched 18:10,En Route 18:20,On Scene 18:21,At Patient 18:23,BP: 130/80 M,PULSE: 92,RR: 16 R,SPO2: 97 Ox,ETCO2: ,BG: ,PAIN: 8,GCS: 15, 18:24,Depart Scene 18:24,ALS Assessment,Response: UnchangedSucceeded, 18:24,BLS Assessment,Response: Unchanged 18:31,At Destination 18:49,Call Closed Disclaimer v1.1 Copyright 2020 [employer] This EMS Care Summary contains data elements from the applicable legal record (which may be displayed differently). It is designed to provide pertinent information for the following purposes: continuity of care, clinical quality, [facility] [address] [place] [address] EMS Patient Care Report Name: TOÑOSUKUMAR HEATHER [id number] Admission: 08/30/20 Attend Phys: Discharge: 08/31/20 Date of : 67 Report #: [id number] and state data reporting. The complete legal record is available to ED staff and administrators of the receiving hospital in [employer] Patient Tracker. All data is provided "as is."
[~2020-08-30 18:32] MED LIST changes: +FLOMAX0.4 MG PO
[2020-08-30 21:52] LABS: ABSOLUTE NEUTROPHILS 3.5 thou/uL (1.4-8.2); BASOPHILS 0.7 % (0.0-2.0); EOSINOPHILS 1.6 % (0.0-3.0); HEMATOCRIT 33.8 % (42.0-52.0); HEMOGLOBIN 11.4 gm/dL (14.0-18.0); LYMPHOCYTES 18.2 % (24.0-44.0); MCH 31.5 pg (26.0-34.0); MCHC 33.7 g/dL (28.0-37.0); MCV 93.6 fL (80.0-100.0); MONOCYTES 15.2 % (1.0-8.0); PLATELET COUNT 50 thou/uL (150-400); POLYS 64.3 % (36.0-66.0); RBC 3.61 mil/uL (4.50-6.00); RDW 18.2 % (10.5-14.5); WBC 5.4 thou/uL (4.0-11.0)
[2020-08-30 22:02] LABS: CALCIUM 7.9 mg/dL (8.5-10.1); CREATININE 0.9 mg/dL (0.7-1.3); POTASSIUM 3.9 mmol/L (3.5-5.1)
[2020-08-30 22:09] LABS: ALBUMIN 2.5 g/dL (3.4-5.0); TOTAL BILIRUBIN 5.2 mg/dL (0.2-1.0); TOTAL PROTEIN 8.8 g/dL (6.4-8.2)
[2020-08-31 00:56] VITALS: BP 127/84
== END 2020-08-31 01:00 | disposition home or self-care (01) ==
LOC: ER 18:32
PROVIDERS: Physician Assistant
DX: K80.20 Calculus of gallbladder without cholecystitis without obstruction (principal); K76.89 Other specified diseases of liver; F10.10 Alcohol abuse, uncomplicated; F17.210 Nicotine dependence, cigarettes, uncomplicated; E11.9 Type 2 diabetes mellitus without complications; I10 Essential (primary) hypertension; Z91.030 Bee allergy status

== ENCOUNTER 2020-09-30 21:41 | Emergency (ER) | payer OTHER ==
[~2020-09-30] VITALS: Ht 185.4 cm; Wt 74.8 kg
--- NOTE | ~2020-09-30 | EMS ---
[address] [address] EMS Patient Care Report Name: SUKUMAR LUNDBERG Room #: DEP BERTHA Molina#: [id number] Admission: 09/30/20 Attend Phys: Discharge: 10/01/20 Date of : 67 Report #: [id number] THIS REPORT FOR: //name// Report Transmitted: 10/05/2020 14:42 EMS Care Summary [place], [place]/[facility] Incident [id number] @ 09/30/2020 21:18 Incident [id number] [place] [address] Patient SUKUMAR LUNDBERG Male, 55 Years 1965 Patient Address [address] [place] [address] Patient History Other,Behavioral/Psychiatric Disorder,Hypertension (HTN),Smoking,Gastro-Esophageal Reflux Disease (GERD),Cirrhosis of Liver,Hepatitis C (Without Hepatic Coma),Depression,Pancreatitis,Alcohol Abuse,Gallstone,Hypokalemia,Hypomagnesemia, Patient Allergies Bee sting allergy,Pollen allergy, Patient Medications Sertraline, Lactulose, Midodrine, Spironolactone, Oxycodone, Magnesium Oxide, Pantoprazole, Melatonin, Gabapentin, Trazodone, Ondansetron, Potassium, Chief Complaint epistaxis Disposition Transported No Lights/[place] Dispatch Reason Hemorrhage/Laceration Transported To [facility] Narrative pt found a&o, ambulatory. pt has spontaneous noes bleed that started approx [address] [place] [address] EMS Patient Care Report Name: SUKUMAR LUNDBERG Room #: DEP M.R.#: [id number] Admission: 09/30/20 Attend Phys: Discharge: 10/01/20 Date of : 67 Report #: [id number] hrs ago. pt states blood is dripping from both nares. he has been holding pressure but unable to get it to stop. he req eval at [facility]. pt seats self on bench, transport w/o change. Initial Vitals @21:28P: 87,R: 18,BP: 114/76,Pain: 0/10,GCS: 15,Revised Trauma: 12, Assessments @21:24MENTAL:No Abnormalities,SKIN:No Abnormalities,HEENT:Head/Face: Other,LUNG SOUNDS:ABDOMEN:PELVIS//GI:EXTREMITIES:PULSE:NEURO:No Abnormalities, Impression Hemorrhage Procedures @21:24ALS AssessmentResponse: Unchanged Timeline 21:15,Call Received 21:15,Dispatch Notified 21:18,Dispatched 21:19,En Route 21:23,On Scene 21:24,At Patient 21:24,ALS Assessment,Response: Unchanged 21:28,BP: 114/76 M,PULSE: 87,RR: 18 R,SPO2: Ox,ETCO2: ,BG: ,PAIN: 0,GCS: 15, 21:30,Depart Scene 21:37,At Destination 21:44,Call Closed Disclaimer v1.1 Copyright 2020 [employer] This EMS Care Summary contains data elements from the applicable legal record (which may be displayed differently). It is designed to provide pertinent information for the following purposes: continuity of care, clinical quality, and state data reporting. The complete legal record is available to ED staff and administrators of the receiving hospital in [employer] Patient Tracker. All data is provided "as is."
[2020-09-30] MEDS ORDERED: URSODIOL300 MG PO (21:53)
[2020-09-30] MEDS ORDERED: ONDANSETRON ODT4 MG PO (21:53)
[2020-09-30] MEDS ORDERED: FLOMAX0.4 MG PO (21:53)
[2020-09-30] MEDS ORDERED: CARAFATE1 GM/10 ML PO (21:53)
[2020-09-30] MEDS ORDERED: CONSTULOSE10 GM/15 M PO (21:54)
[2020-09-30] MEDS ORDERED: MAG-OXIDE400 MG PO (21:55)
[2020-09-30] MEDS ORDERED: NEURONTIN 300M300 M2 PO (21:55)
[2020-09-30] MEDS ORDERED: MIDODRINE HCL 55 M1 PO (21:55)
[2020-09-30] MEDS ORDERED: FUROSEMIDE 40 M40 MG PO (21:55)
[2020-09-30] MEDS ORDERED: PROTONIX 20 MG20 M1 PO (21:56)
[2020-09-30] MEDS ORDERED: POTASSIUM20 PO (21:56)
[2020-09-30] MEDS ORDERED: SPIRONOLACTONE50 MG PO (21:57)
[2020-09-30] MEDS ORDERED: SERTRALINE HCL100 MG PO (21:57)
[2020-10-01 05:04] VITALS: BP 102/75
== END 2020-10-01 05:05 | disposition home or self-care (01) ==
LOC: ER 21:41
DX: R04.0 Epistaxis (principal); E11.9 Type 2 diabetes mellitus without complications; I10 Essential (primary) hypertension; F32.9 Major depressive disorder, single episode, unspecified; F17.210 Nicotine dependence, cigarettes, uncomplicated; Z79.899 Other long term (current) drug therapy; Z91.030 Bee allergy status; Z91.038 Other insect allergy status